=== PATIENT | male | born 1950 | race African-American/Black ===

== ENCOUNTER 2018-10-08 20:26 | Inpatient (IN) | payer MEDICARE, OTHER ==
[~2018-10-08] VITALS: Ht 193 cm; Wt 97.1 kg
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
[2018-10-08] MEDS ORDERED: AMLO5TAB9 PO (20:50)
[2018-10-08] MEDS ORDERED: FAMO-132 PO (20:50)
[2018-10-08] MEDS ORDERED: QUET25TA PO (20:50)
[2018-10-08] MEDS ORDERED: PARO-142 PO (20:50)
[2018-10-08] MEDS ORDERED: CHOL100062 PO (20:50)
[2018-10-08] MEDS ORDERED: PERP8TAB6 PO (20:50)
[2018-10-08 21:02] LABS: BASOPHILS # (AUTO) 0.1 K/uL (0.0-8.0); BASOPHILS % (AUTO) 2.9 % (0.0-2.0); EOSINOPHILS # (AUTO) 0.1 K/uL (0.0-0.7); EOSINOPHILS % (AUTO) 2.5 % (0.0-7.0); HEMATOCRIT 37.6 % (36.7-47.1); HEMOGLOBIN 12.2 g/dL (12.5-16.3); LYMPHOCYTES # (AUTO) 1.3 K/uL (20.0-40.0); LYMPHOCYTES % (AUTO) 33.3 % (20.5-51.5); MEAN CORPUSCULAR HEMOGLOBIN 28.2 uug (23.8-33.4); MEAN CORPUSCULAR HGB CONC 33 g/dL (32.5-36.3); MEAN CORPUSCULAR VOLUME 86.7 fL (73.0-96.2); MONOCYTES # (AUTO) 0.5 K/uL (2.0-10.0); MONOCYTES % (AUTO) 13.3 % (0.0-11.0); NEUTROPHILS # (AUTO) 1.9 K/uL (1.8-8.9); PLATELET COUNT (AUTO) 276 K/uL (152-348); RED BLOOD CELL COUNT(AUTO) 4.33 MIL/uL (4.06-5.63); WHITE BLOOD COUNT (AUTO) 3.9 K/uL (3.6-10.2)
[2018-10-08 21:15] LABS: CARBON DIOXIDE 26 mmol/L (21-32); CHLORIDE 103 mmol/L (98-107); CREATININE 1.2 mg/dL (0.6-1.3); GLUCOSE 95 mg/dL (74-106); POTASSIUM 3.5 mmol/L (3.5-5.1); UREA NITROGEN, BLOOD 8 mg/dL (7-18)
[2018-10-08 21:28] LABS: THYROID STIMULATING HORMONE 1.493 mIU/mL (0.358-3.740)
[2018-10-08 21:34] LABS: ETHANOL < 3 MG/DL (0-0)
[2018-10-08 21:36] LABS: ACETAMINOPHEN < 2.0 ug/mL (10-30); ALANINE AMINOTRANSFERASE 13 U/L (16-63); ALKALINE PHOSPHATASE 90 U/L (50-136); ASPARTATE AMINOTRANSFERASE 13 U/L (15-37); BILIRUBIN,DIRECT 0.1 mg/dL (0.0-0.2); BILIRUBIN,TOTAL 0.3 mg/dL (0.2-1.0); TOTAL PROTEIN, SERUM 7.9 g/dL (6.4-8.2)
--- NOTE | 2018-10-08 21:40 | NUR ---
Called Culture Manager for sitter, no sitter available at this time, adviced to utilize security temporarily. Security at bedside.
--- NOTE | 2018-10-08 21:51 | NUR ---
Pt provided urine sample, sent to lab.
[2018-10-08 21:58] LABS: *BILIRUBIN,URIN NEGATIVE (NEGATIVE); *BLOOD, URINE NEGATIVE (NEGATIVE); *CLARITY,URINE CLEAR (CLEAR); *COLOR,URINE YELLOW (YELLOW); *KETONES,URINE NEGATIVE (NEGATIVE); *UROBILINOGEN,URINE 0.2 E.U./dl (NORMAL); LEUKOCYTE ESTERASE ,URINE NEGATIVE (NEGATIVE); NITRITE, URINE NEGATIVE (NEGATIVE); UGLUCOSE NEGATIVE (NEGATIVE)
--- NOTE | 2018-10-08 22:54 | NUR ---
US at bedside
--- NOTE | 2018-10-08 23:13 | NUR ---
Report given to Kathleen
--- NOTE | 2018-10-08 23:30 | NUR ---
Patient transported to MHU in stable condition.
[2018-10-09] MEDS ORDERED: MAGNESIUM HYDROXIDE 30 ML LIQUID UDC PO PRN (00:15)
[2018-10-09] MEDS ORDERED: ACETAMINOPHEN 325 MG TABLET PO PRN (00:15)
[2018-10-09] MEDS ORDERED: MAG HYDROX/AL HYDROX/SIMETH 30 ML LIQUID UDC PO PRN (00:15)
[2018-10-09] MEDS ORDERED: LORAZEPAM 0.5 MG TABLET PO PRN (00:15)
[2018-10-09 00:20] VITALS: BP 122/70
--- NOTE | 2018-10-09 01:32 | NUR ---
ADMITTED A 68 Y/O MALE FROM [facility] AT 00;02 ON A 5150 HOLD WITH PSYCHOSIS PRIMARY DIAGNOSIS AND DR POP THE PSYCHIATRIST.HE IS A/O X 2 AND UNKEMPT. WHEN ASKED WHAT BROUGHT HIM HERE HE SAID "I HAVE GOT PROBLEMS. I FEEL AGGRAVATED '. WILL NOT SAY WHO AGGRAVATES HIM. DENIES HEARING VOICES BUT KEPT TAPPING THE TABLE THE INTERVIEWER WAS USING AND MUTTERING UNDER HIS BREATH. RIGHT FOOT IS SWOLLEN AND SCALY AND LEFT FOOT IS SCALY AND VERY DRY.WILL CONTINUE TO MONITOR.
[2018-10-09 02:16] LABS: *AMPHETAMINE, URINE NEGATIVE (NEGATIVE); *BARBITURATE, URINE NEGATIVE (NEGATIVE); *CANNABINOID, URINE NEGATIVE (NEGATIVE); *COCCAINE, URINE NEGATIVE (NEGATIVE); *OPIATE, URINE NEGATIVE (NEGATIVE); *PHENCYCLIDINE SCREEN,URINE NEGATIVE (NEGATIVE)
--- NOTE | 2018-10-09 07:02 | NUR ---
SLEPT APPROX.8 HRS.
[2018-10-09 07:30] VITALS: BP 160/77
[2018-10-09] MEDS: FAMOTIDINE 20 MG TABLET PO SCH ×2 (10:59→16:30)
[2018-10-09] MEDS: AMLODIPINE 5 MG TABLET PO SCH (10:59)
[2018-10-09] MEDS: CHOLECALCIFEROL 1,000 UNIT TABLET PO SCH (11:00)
[2018-10-09] MEDS ORDERED: CLONIDINE HCL 0.1 MG TABLET PO PRN (11:45)
[2018-10-09 16:00] VITALS: BP 145/75
[2018-10-09] MEDS: QUETIAPINE FUMARATE 100 MG TABLET PO SCH ×2 (17:17→20:12)
[2018-10-09 19:51] VITALS: BP 125/77
[2018-10-10 07:53] VITALS: BP 120/70
[2018-10-10] MEDS: QUETIAPINE FUMARATE 100 MG TABLET PO SCH ×3 (08:36→21:37)
[2018-10-10] MEDS: CHOLECALCIFEROL 1,000 UNIT TABLET PO SCH (08:36)
[2018-10-10] MEDS: AMLODIPINE 5 MG TABLET PO SCH (08:36)
[2018-10-10] MEDS: FAMOTIDINE 20 MG TABLET PO SCH ×2 (08:36→16:00)
[2018-10-10] MEDS: PAROXETINE HCL 20 MG TABLET PO SCH (08:36)
[2018-10-10] MEDS: LORAZEPAM 1 MG TABLET PO PRN ×2 (11:05→19:49)
--- NOTE | 2018-10-10 11:40 | NUR ---
Initial Discharge Plan: Patient is a 68 year old male who currently resides at [facility] [[address] [place] [address]; ]. Patient unable to state if he would like to return to facility or not. However, per Patty, senior energy market coordinator, she would like patient to go to a chcf facility for a short-term stay for medication management. Patty states she will accept patient back after chcf placement. humidifier maintenance worker will facilitate chcf placement for patient. humidifier maintenance worker will continue to collaborate with patient and MD on a safe and proper discharge.
[2018-10-10 15:51] VITALS: BP 122/83
--- NOTE | 2018-10-10 18:13 | NUR ---
GPS: RECEIVED AOX1 PATIENT STAYS IN HIS ROOM , COVERED WITH BLANKET, BIZARRE BEHAVIOR, CONFUSED DISORGANIZED, TALKING TO HIMSELF,DENIES PAIN WITH 0/10 PAIN SCALE , COMPLIANT WITH MEDICATION, CALM AND COOPERATIVE, WILL CONTINUE MONITOR
--- NOTE | 2018-10-10 19:20 | NUR ---
Received pt on bed. Pt covered with blanket. Pt pleasant when approached. Pt in no acute distress. Safety and comfort provided. Will continue to monitor.
[2018-10-10] MEDS: ATORVASTATIN 20 MG TABLET PO SCH (20:06)
[2018-10-10 20:32] VITALS: BP 115/66
--- NOTE | 2018-10-11 06:41 | NUR ---
Pt slept 6.3 hours. Pt in no acute distress. At 1949 given ativan for pt becoming agitated. Pt yelling to staff what he wants. Pt condition improved after an hour. Prescribed medication given and pt tolerated it well. Safety and comfort provided. All needs are met. Will endorse accordingly to incoming nurse for continuity of care.
[2018-10-11 07:30] VITALS: BP 135/75
[2018-10-11] MEDS: CHOLECALCIFEROL 1,000 UNIT TABLET PO SCH (08:21)
[2018-10-11] MEDS: FAMOTIDINE 20 MG TABLET PO SCH ×2 (08:21→16:03)
[2018-10-11] MEDS: QUETIAPINE FUMARATE 100 MG TABLET PO SCH ×3 (08:21→20:13)
[2018-10-11] MEDS: PAROXETINE HCL 20 MG TABLET PO SCH (08:21)
[2018-10-11] MEDS: AMLODIPINE 5 MG TABLET PO SCH (08:22)
[2018-10-11 15:10] VITALS: BP 140/74
[2018-10-11] MEDS: ATORVASTATIN 20 MG TABLET PO SCH (20:13)
[2018-10-11 20:14] VITALS: BP 122/81
--- NOTE | 2018-10-12 03:51 | NUR ---
aaox1 ambulatory ad sammy. VSS needs attended. no signs of restlessness or agitation noted. compliant with meds. needs attended,.kept comfortabke will monitor patient. no acute distress noted.
[2018-10-12 07:30] VITALS: BP 133/78
[2018-10-12] MEDS: FAMOTIDINE 20 MG TABLET PO SCH ×2 (08:11→16:15)
[2018-10-12] MEDS: CHOLECALCIFEROL 1,000 UNIT TABLET PO SCH (08:11)
[2018-10-12] MEDS: QUETIAPINE FUMARATE 100 MG TABLET PO SCH ×3 (08:11→20:25)
[2018-10-12] MEDS: PAROXETINE HCL 20 MG TABLET PO SCH (08:12)
[2018-10-12] MEDS: AMLODIPINE 5 MG TABLET PO SCH (08:12)
[2018-10-12 16:00] VITALS: BP 118/72
--- NOTE | 2018-10-12 18:39 | NUR ---
PATIENT AAOX1. AMBULATORY WITH MINIMAL ASSIST. COMPLIANT WITH MEDICATIONS AND CARE. NO S/S OF ACUTE DISTRESS. DENIES SI AND HI. COOPERATIVE. NO AGGRESSIVE BEHAVIOR AT THIS TIME.
[2018-10-12 20:00] VITALS: BP 128/60
[2018-10-12] MEDS: ATORVASTATIN 20 MG TABLET PO SCH (20:24)
[2018-10-12] MEDS: TEMAZEPAM 7.5 MG CAPSULE PO PRN (23:46)
[2018-10-13 07:30] VITALS: BP 139/80
[2018-10-13] MEDS: PAROXETINE HCL 20 MG TABLET PO SCH (09:07)
[2018-10-13] MEDS: QUETIAPINE FUMARATE 100 MG TABLET PO SCH ×3 (09:07→20:42)
[2018-10-13] MEDS: AMLODIPINE 5 MG TABLET PO SCH (09:07)
[2018-10-13] MEDS: CHOLECALCIFEROL 1,000 UNIT TABLET PO SCH (09:07)
[2018-10-13] MEDS: FAMOTIDINE 20 MG TABLET PO SCH ×2 (09:07→16:58)
[2018-10-13 16:00] VITALS: BP 131/91
--- NOTE | 2018-10-13 18:06 | NUR ---
Gps/Portfolio Architect- Stayed in the activity room during dinner time, had complained of generalized discomfort, prn tylenol 650 mg. po as ordered, verbalized adequate relief.
[2018-10-13 20:00] VITALS: BP 107/65
[2018-10-13] MEDS: ATORVASTATIN 20 MG TABLET PO SCH (20:42)
--- NOTE | 2018-10-14 06:01 | NUR ---
pt. slept for 7 hrs. stayed in activity room till sleepy. denies discomfort. pt. is cooperative & calm. kept pt. safe & free from injury. not in any distress.
[2018-10-14 08:00] VITALS: BP 161/81
[2018-10-14] MEDS: QUETIAPINE FUMARATE 100 MG TABLET PO SCH ×3 (08:44→20:33)
[2018-10-14] MEDS: PAROXETINE HCL 20 MG TABLET PO SCH (08:44)
[2018-10-14] MEDS: FAMOTIDINE 20 MG TABLET PO SCH ×2 (08:45→16:11)
[2018-10-14] MEDS: CHOLECALCIFEROL 1,000 UNIT TABLET PO SCH (08:45)
[2018-10-14] MEDS: AMLODIPINE 5 MG TABLET PO SCH (08:45)
[2018-10-14 16:00] VITALS: BP 114/69
[2018-10-14] MEDS: ATORVASTATIN 20 MG TABLET PO SCH (20:33)
[2018-10-14 20:46] VITALS: BP 122/78
[2018-10-15 07:30] VITALS: BP 144/78
[2018-10-15] MEDS: CHOLECALCIFEROL 1,000 UNIT TABLET PO SCH (08:59)
[2018-10-15] MEDS: PAROXETINE HCL 20 MG TABLET PO SCH (09:00)
[2018-10-15] MEDS: AMLODIPINE 5 MG TABLET PO SCH (09:00)
[2018-10-15] MEDS: QUETIAPINE FUMARATE 100 MG TABLET PO SCH ×3 (09:00→20:18)
[2018-10-15] MEDS: FAMOTIDINE 20 MG TABLET PO SCH ×2 (09:00→16:58)
[2018-10-15 15:33] VITALS: BP 90/53
[2018-10-15 19:55] VITALS: BP 98/66
[2018-10-15] MEDS: ATORVASTATIN 20 MG TABLET PO SCH (20:16)
[2018-10-16 07:30] VITALS: BP 128/69
--- NOTE | 2018-10-16 07:59 | NUR ---
PATIENT IS LAYING DOWN IN HIS BED, NO SOB, RESP EVEN NONLABORED,NO ACUTE DISTRESS NOTED AT THIS TIME, NO AGGRESSIVE OR COMBATIVE BEHAVIOR NOTED
[2018-10-16] MEDS: FAMOTIDINE 20 MG TABLET PO SCH ×2 (08:49→16:57)
[2018-10-16] MEDS: CHOLECALCIFEROL 1,000 UNIT TABLET PO SCH (08:49)
[2018-10-16] MEDS: AMLODIPINE 5 MG TABLET PO SCH (08:49)
[2018-10-16] MEDS: QUETIAPINE FUMARATE 100 MG TABLET PO SCH ×3 (08:50→20:14)
[2018-10-16] MEDS: PAROXETINE HCL 20 MG TABLET PO SCH (08:50)
[2018-10-16 16:00] VITALS: BP 145/69
--- NOTE | 2018-10-16 18:35 | NUR ---
patient is alert x1-2 times, awake, cooperative with meds and meals, tolerated well, no sob, resp even nonlabored,skin warm and dry to touch, no acute distress noted, patient stayed in his room most of the time, ambulatory, self care, BRP, Patient denied any suicidal thoughts, kept safe, free from injury, no aggressive or combative behavior noted during the shift, continue to monitor for safety
[2018-10-16] MEDS: ATORVASTATIN 20 MG TABLET PO SCH (20:14)
[2018-10-16 20:38] VITALS: BP 108/66
[2018-10-17 07:30] VITALS: BP 140/80
[2018-10-17] MEDS: CHOLECALCIFEROL 1,000 UNIT TABLET PO SCH (08:27)
[2018-10-17] MEDS: AMLODIPINE 5 MG TABLET PO SCH (08:27)
[2018-10-17] MEDS: PAROXETINE HCL 20 MG TABLET PO SCH (08:27)
[2018-10-17] MEDS: QUETIAPINE FUMARATE 100 MG TABLET PO SCH ×3 (08:28→20:36)
[2018-10-17] MEDS: FAMOTIDINE 20 MG TABLET PO SCH ×2 (08:28→16:26)
[2018-10-17 16:00] VITALS: BP 123/68
[2018-10-17 20:31] VITALS: BP 120/67
[2018-10-17] MEDS: ATORVASTATIN 20 MG TABLET PO SCH (20:36)
--- NOTE | 2018-10-17 21:32 | NUR ---
Patient received in room awake, remains isolative and withdrawn. Patient complaint with medication. Patient denies pain at this time will continue to monitor. No aggressive behavior noted, will continue to monitor and redirect as needed.
[2018-10-17] MEDS: TEMAZEPAM 7.5 MG CAPSULE PO PRN (23:38)
[2018-10-18 07:30] VITALS: BP 162/76
[2018-10-18 08:29] VITALS: BP 162/42
[2018-10-18] MEDS: PAROXETINE HCL 20 MG TABLET PO SCH (08:29)
[2018-10-18] MEDS: FAMOTIDINE 20 MG TABLET PO SCH ×2 (08:29→17:03)
[2018-10-18] MEDS: AMLODIPINE 5 MG TABLET PO SCH (08:29)
[2018-10-18] MEDS: CHOLECALCIFEROL 1,000 UNIT TABLET PO SCH (08:29)
[2018-10-18] MEDS: QUETIAPINE FUMARATE 100 MG TABLET PO SCH ×2 (08:30→17:03)
--- NOTE | 2018-10-18 09:35 | NUR ---
Discharge Note: Patient will be discharged to back to [facility] [[address], [place] [address]; ] and transportation will be provided by ambulance at 11:00am. Please arrange ambulance transportation for this patient. Acceptance to facility was received by isaak Luciano, who states they are ready to accept the patient today. Patient is AxOx1, denies suicidal ideation, is able to plan for self-care, and is agreeable with discharge plan. There is no next of kin identified in patients records. Patient unable to provide any contact to notify regarding discharge plan. Patient will be followed by Dr. Fuchs (er tech) and Dr. Diez (psychiatrist) at the facility. Patient has also been provided with mental health resources including [facility] Line [ ], [facility] [ ], and the National Suicide Prevention Lifeline [ ].
--- NOTE | 2018-10-18 11:21 | NUR ---
FIREARMS REPORT: [employer]room [employer] completed and submitted a [employer] firearms report for [address] [employer] certification. A copy of the report has been placed in patient's chart.
--- NOTE | 2018-10-18 16:27 | NUR ---
patient will be discharge to SNF around 6 pm, patient refused for discharge picture taken asked nurse to go away, report given to Noelle STEINBERG from the facility.
[2018-10-18] MEDS: LORAZEPAM 1 MG TABLET PO PRN (17:03)
== END 2018-10-18 18:30 | DRG 885 ==
LOC: ER 20:26 → GPS 23:51
PROVIDERS: ADMIT Psychiatry & Neurology Psychiatry; ATTEND Nurse Practitioner Acute Care
DX: F20.0 Paranoid schizophrenia (principal); K21.9 Gastro-esophageal reflux disease without esophagitis; I10 Essential (primary) hypertension; R60.0 Localized edema; E78.5 Hyperlipidemia, unspecified; F32.9 Major depressive disorder, single episode, unspecified; Z79.899 Other long term (current) drug therapy
CPT/HCPCS: 36415; 70030-TC; 71045; 80307; 84443; 85025; 85730; 87086; 93005; 97116; 97530; A4663; G0480; G0480-TC